=== PATIENT | female | born 1995 | race Asian ===

== ENCOUNTER 2023-02-09 03:29 | Inpatient (IN) | payer OTHER ==
[~2023-02-09] VITALS: Ht 167.6 cm; Wt 99.3 kg
[2023-02-09] MEDS ORDERED: ACETAMINOPHEN 650 MG/SUPP.RECT RC ONE ×2 (03:50→04:00)
[2023-02-09] MEDS ORDERED: CEFEPIME 2 GM in IV D5W 50 ML IV ONE (04:00)
[2023-02-09] MEDS ORDERED: VANCOMYCIN 1 GM in IV D5W 250 ML IV ONE (04:00)
[2023-02-09] MEDS ORDERED: IV NS 0.9% 1,000 ML BAG IV ONE (04:00)
[2023-02-09 05:13] LABS: APPEARANCE,URINE CLEAR (CLEAR); BILIRUBIN,URINE NEGATIVE (NEGATIVE); BLOOD, URINE 1+ Ery/uL (NEGATIVE); COLOR,URINE YELLOW (YELLOW); KETONES,URINE NEGATIVE (NEGATIVE); LEUKOCYTE ESTERASE ,URINE NEGATIVE (NEGATIVE); NITRITE, URINE NEGATIVE (NEGATIVE); PROTEIN,URINE NEGATIVE (NEGATIVE); UGLUCOSE NEGATIVE (NEGATIVE); UROBILINOGEN,URINE 0.2 EU/dL (0.2)
[2023-02-09] MEDS ORDERED: CEFEPIME 1 GM VIAL ONE (05:19)
[2023-02-09] MEDS ORDERED: VANCOMYCIN 1 GM /D5W 250 ML PB IV ONE (06:05)
[2023-02-09 07:01] LABS: CALCIUM, SERUM 9.1 mg/dL (8.5-10.1); CARBON DIOXIDE 29 mmol/L (21-32); CHLORIDE 100 mmol/L (98-107); CREATININE 0.7 mg/dL (0.6-1.3); GLUCOSE 155 mg/dL (74-106); POTASSIUM 3.7 mmol/L (3.5-5.1); SODIUM SERUM 133 mmol/L (136-145); UREA NITROGEN, BLOOD 13 mg/dL (7-18)
[2023-02-09 07:14] LABS: ALANINE AMINOTRANSFERASE 30 U/L (12-78); ALKALINE PHOSPHATASE 87 U/L (46-116); ASPARTATE AMINOTRANSFERASE 32 U/L (15-37); BILIRUBIN,DIRECT 0.2 mg/dL (0.0-0.2); BILIRUBIN,TOTAL 0.8 mg/dL (0.2-1.0); NT-PRO BNP 155 pg/mL (0-125)
[2023-02-09 08:27] LABS: BASOPHILS % (AUTO) 0.2 % (0.0-2.0); EOSINOPHILS # (AUTO) 0.3 K/uL (0.0-0.7); EOSINOPHILS % (AUTO) 4.8 % (0.0-6.0); HEMATOCRIT 30 % (33-45); HEMOGLOBIN 9.7 g/dL (11.5-14.8); LYMPHOCYTES # (AUTO) 1.3 K/uL (0.8-4.8); LYMPHOCYTES % (AUTO) 21.2 % (20.0-44.0); MEAN CORPUSCULAR HEMOGLOBIN 26 PG (26.0-33.0); MEAN CORPUSCULAR HGB CONC 32 g/dl (31.0-36.0); MEAN CORPUSCULAR VOLUME 81 fL (82-100); MONOCYTES # (AUTO) 0.4 K/uL (0.1-1.30); NEUTROPHILS # (AUTO) 4.1 K/uL (1.8-8.9); NEUTROPHILS % (AUTO) 66.8 % (43.0-81.0); PLATELET COUNT (AUTO) 270 K/uL (150-450); RED BLOOD CELL COUNT(AUTO) 3.75 MIL/uL (4.0-5.2); RED CELL DISTRIBUTION WIDTH 21.8 % (11.5-15.0); WHITE BLOOD COUNT (AUTO) 6.1 K/uL (4.3-11.0)
[2023-02-09 08:39] LABS: INR 1.04 (0.91-1.10); PARTIAL THROMBOPLASTIN TIME 30.2 SEC (24.3-34.3); PROTHROMBIN TIME 10.9 SECS (9.2-11.1)
[2023-02-09] MEDS ORDERED: DESM0.2T23 GT (09:21)
[2023-02-09] MEDS ORDERED: MENT71OI2 TP (09:21)
[2023-02-09] MEDS ORDERED: MAGN400O6 GT (09:21)
[2023-02-09] MEDS ORDERED: PETR113O TP (09:21)
[2023-02-09] MEDS ORDERED: HYDR-4316 GT (09:21)
[2023-02-09] MEDS ORDERED: METF-440 GT (09:21)
[2023-02-09] MEDS ORDERED: POVI3780 TP (09:21)
[2023-02-09] MEDS ORDERED: LACT250L14 GT (09:21)
[2023-02-09] MEDS ORDERED: CHLO473M5 MM (09:21)
[2023-02-09] MEDS ORDERED: INSU100V7 SQ (09:21)
[2023-02-09] MEDS ORDERED: LEVE100S GT (09:21)
[2023-02-09] MEDS ORDERED: ACET650S26 GT (09:21)
[2023-02-09] MEDS ORDERED: METO25TA20 GT (09:21)
[2023-02-09] MEDS ORDERED: ALBU8.5H8 IH ×2 (09:21)
[2023-02-09] MEDS ORDERED: NA P133E RC (09:21)
[2023-02-09] MEDS ORDERED: BISA10SU11 RC (09:21)
[2023-02-09] MEDS ORDERED: LEVO75TA7 TD (09:21)
[2023-02-09] MEDS ORDERED: BISACODYL SUPP (10 MG) 10 MG/SUPP.RECT SUPP.RECT RC PRN (11:30)
[2023-02-09] MEDS ORDERED: MAGNESIUM HYDROXIDE 30 ML UDC GT PRN (11:30)
[2023-02-09] MEDS ORDERED: NA PHOS,M-B/NA PHOS,DI-BA 1 EA ENEMA RC PRN (11:30)
[2023-02-09] MEDS ORDERED: ACETAMINOPHEN 650 MG/20.3 ML UDC GT PRN (11:30)
[2023-02-09] MEDS: ALBUTEROL FS 2.5 MG/3 ML VIAL.NEB NEB SCH ×2 (12:43→20:33)
[2023-02-09] MEDS: METFORMIN 500 MG TABLET GT SCH (17:00)
[2023-02-09] MEDS: JEVITY 1.5 CAL LIQUID 1,000 ML BOTTLE GT SCH ×2 (17:00→21:00)
[2023-02-09 17:01] VITALS: BP 116/68; TEMP 99.5; O2SAT 98
[2023-02-09] MEDS: LORAZEPAM INJ 2 MG/ML VIAL IV PRN (17:46)
[2023-02-09] MEDS: VANCOMYCIN 1 GM in IV D5W 250ml IV SCH (17:59)
[2023-02-09] MEDS: CHLORHEXIDINE GLUCONATE 15 ML UDC MM SCH (18:50)
[2023-02-09] MEDS: ZOSYN IVPB 3.375 G in IV D5W 50ml IV SCH (19:09)
[2023-02-09 20:00] VITALS: BP 109/71; TEMP 101.7; O2SAT 94
[2023-02-09] MEDS: LEVETIRACETAM SOL (5 ML) 100 MG/ML UDC GT SCH (21:00)
[2023-02-09] MEDS: DESMOPRESSIN ACETATE 0.1 MG TABLET GT SCH (21:00)
[2023-02-09] MEDS: HYDROCORTISONE 5 MG TABLET GT SCH (21:00)
[2023-02-09] MEDS: METOPROLOL TARTRATE 25 MG TABLET GT SCH (21:00)
[2023-02-09] MEDS ORDERED: INSULIN GLARGINE, 100 UNIT/ML CARTRIDGE SQ SCH (22:00)
[2023-02-09] MEDS: ACETAMINOPHEN 650 MG/SUPP.RECT RC PRN (22:11)
[2023-02-09] MEDS ORDERED: LEVETIRACETAM (500MG) 500 MG/5 ML VIAL IV ONE (23:21)
[2023-02-09] MEDS: LEVETIRACETAM (500MG) 1,000 MG in IV NS 0.9% 90 ML IV SCH (23:31)
[2023-02-10] VITALS (11 sets, daily range): BP systolic 79–131; BP diastolic 43–76; TEMP 101–104.6; O2SAT 97–100
[2023-02-10] MEDS: ZOSYN IVPB 3.375 G in IV D5W 50ml IV SCH ×5 (00:05→23:40)
[2023-02-10] MEDS: JEVITY 1.5 CAL LIQUID 1,000 ML BOTTLE GT SCH ×6 (01:00→21:00)
[2023-02-10] MEDS: VANCOMYCIN 1 GM in IV D5W 250ml IV SCH (01:24)
[2023-02-10] MEDS: ALBUTEROL FS 2.5 MG/3 ML VIAL.NEB NEB SCH ×5 (02:11→20:07)
[2023-02-10 08:06] LABS: CALCIUM, SERUM 10.3 mg/dL (8.5-10.1); CREATININE 1.5 mg/dL (0.6-1.3); POTASSIUM 4.2 mmol/L (3.5-5.1)
[2023-02-10] MEDS: METFORMIN 500 MG TABLET GT SCH ×2 (08:42→17:00)
[2023-02-10] MEDS: CHLORHEXIDINE GLUCONATE 15 ML UDC MM SCH ×2 (08:42→17:09)
[2023-02-10] MEDS: METOPROLOL TARTRATE 25 MG TABLET GT SCH ×2 (08:43→21:00)
[2023-02-10] MEDS: LEVOTHYROXINE SODIUM 75 MCG TABLET GT SCH (08:43)
[2023-02-10] MEDS: LEVETIRACETAM SOL (5 ML) 100 MG/ML UDC GT SCH (08:43)
[2023-02-10] MEDS: ACETAMINOPHEN 650 MG/SUPP.RECT RC PRN ×3 (08:44→18:55)
[2023-02-10] MEDS: DESMOPRESSIN ACETATE 0.1 MG TABLET GT SCH (08:46)
[2023-02-10 09:33] LABS: ABG BASE EXCESS 1.2 mmol/L; ABG OXYGEN SATURATION 96.5 % (92.0-98.5); ABG PCO2 35.9 mmHg (35.0-45.0); ABG PH 7.456 (7.350-7.450); ABG PO2 90.5 mmHg (75.0-100.0); ABG TOTAL HEMOGLOBIN 13.5 G/dL (12.0-16.0); AaDO2 153.4 mmHg; COHb 0.7 % (0.5-1.5); MetHb 0.2 % (0.0-1.5); O2Hb 95.6 % (94.0-97.0); SITE, ABG Right Radial; VENT MODE, BG AC 14 350 40% +5
[2023-02-10] MEDS: HYDROCORTISONE 5 MG TABLET GT SCH ×2 (09:59→21:00)
[2023-02-10] MEDS ORDERED: Z GUARD REMEDY 4 OZ OINT TP PRN (11:30)
[2023-02-10 11:45] LABS: ALBUMIN 3.4 g/dL (3.4-5.0); BILIRUBIN,TOTAL 0.9 mg/dL (0.2-1.0); CALCIUM, SERUM 10.3 mg/dL (8.5-10.1); POTASSIUM 4.7 mmol/L (3.5-5.1)
[2023-02-10] MEDS ORDERED: HEPARIN SODIUM, PORCINE 5000 UNITS/1 ML VIAL SQ SCH (12:00)
[2023-02-10 12:02] LABS: CREATININE 1.8 mg/dL (0.6-1.3)
[2023-02-10] MEDS: LEVETIRACETAM (500MG) 1,000 MG in IV NS 0.9% 90 ML IV SCH ×2 (12:14→22:29)
[2023-02-10] MEDS: Z GUARD REMEDY 4 OZ OINT TP SCH (12:26)
[2023-02-10] MEDS: IV D5W 1,000 ML IV PRN ×3 (12:28→13:38)
[2023-02-10] MEDS ORDERED: IV D5W 1,000 ML IV ONE ×2 (13:00)
[2023-02-10] MEDS: DESMOPRESSIN 4 MCG/ML AMPUL SQ SCH ×2 (13:53→22:39)
[2023-02-10 14:20] LABS: CREATININE, URINE 41.9 MG/DL (30.0-125.0); URINE SODIUM, RANDOM < 5 mmol/l (40-220); URINE TOTAL PROTEIN 16.1 mg/dL (0-11.9)
[2023-02-10 15:39] LABS: APPEARANCE,URINE CLEAR (CLEAR); BILIRUBIN,URINE NEGATIVE (NEGATIVE); BLOOD, URINE TRACE-INTA Ery/uL (NEGATIVE); COLOR,URINE YELLOW (YELLOW); KETONES,URINE NEGATIVE (NEGATIVE); LEUKOCYTE ESTERASE ,URINE 1+ (NEGATIVE); NITRITE, URINE NEGATIVE (NEGATIVE); PH,URINE 6.5 (5.0-8.0); PROTEIN,URINE NEGATIVE (NEGATIVE); UGLUCOSE NEGATIVE (NEGATIVE); UROBILINOGEN,URINE 0.2 EU/dL (0.2)
[2023-02-10 15:45] LABS: PREGNANCY TEST URINE QUAL NEGATIVE (NEGATIVE)
[2023-02-10 15:54] LABS: ADD URINE CULTURE YES; BACTERIA,URINE 1+ /HPF (None Seen)
[2023-02-10 16:40] LABS: CALCIUM, SERUM 9.4 mg/dL (8.5-10.1); CREATININE 2.2 mg/dL (0.6-1.3); POTASSIUM 3.7 mmol/L (3.5-5.1)
[2023-02-10 16:41] LABS: EOSINOPHIL,URINE None Seen
[2023-02-10] MEDS: CLOTRIMAZOLE 1% 15 GM TUBE TP SCH (17:11)
[2023-02-10] MEDS: IV 1/2NS 1000 ML 1,000 ML IV PRN (17:56)
[2023-02-10 19:47] LABS: CALCIUM, SERUM 9.3 mg/dL (8.5-10.1); CREATININE 2.7 mg/dL (0.6-1.3); POTASSIUM 4.1 mmol/L (3.5-5.1)
[2023-02-10] MEDS: PHENYLEPHRINE 50 MG in IV NS 0.9% 245 ML IV PRN (22:20)
[2023-02-10] MEDS: INSULIN GLARGINE, 100 UNIT/ML CARTRIDGE SQ SCH (23:07)
[2023-02-11] VITALS (96 sets, daily range): BP systolic 74–145; BP diastolic 34–105; TEMP 99.6–103.8; O2SAT 98–100
[2023-02-11 00:50] LABS: HIV-1 p24 ANTIGEN NON REACTIVE (NONREACTIVE); HIV-1/2 ANTIBODY NON REACTIVE (NONREACTIVE)
[2023-02-11] MEDS: JEVITY 1.5 CAL LIQUID 1,000 ML BOTTLE GT SCH ×6 (01:00→21:00)
[2023-02-11] MEDS: ALBUTEROL FS 2.5 MG/3 ML VIAL.NEB NEB SCH ×3 (01:48→14:04)
[2023-02-11] MEDS: ACETAMINOPHEN 650 MG/SUPP.RECT RC PRN ×3 (02:27→19:21)
[2023-02-11 03:45] LABS: BASOPHILS # (AUTO) 0.1 K/uL (0.0-0.2); BASOPHILS % (AUTO) 0.4 % (0.0-2.0); EOSINOPHILS # (AUTO) 0.6 K/uL (0.0-0.7); HEMATOCRIT 33 % (33-45); HEMOGLOBIN 10.2 g/dL (11.5-14.8); LYMPHOCYTES # (AUTO) 4.7 K/uL (0.8-4.8); LYMPHOCYTES % (AUTO) 33.4 % (20.0-44.0); MEAN CORPUSCULAR HEMOGLOBIN 25 PG (26.0-33.0); MEAN CORPUSCULAR HGB CONC 31 g/dl (31.0-36.0); MEAN CORPUSCULAR VOLUME 83 fL (82-100); MONOCYTES # (AUTO) 1.1 K/uL (0.1-1.30); MONOCYTES % (AUTO) 7.9 % (2.0-12.0); NEUTROPHILS # (AUTO) 7.6 K/uL (1.8-8.9); NEUTROPHILS % (AUTO) 54.3 % (43.0-81.0); PLATELET COUNT (AUTO) 447 K/uL (150-450); RED BLOOD CELL COUNT(AUTO) 4.01 MIL/uL (4.0-5.2); RED CELL DISTRIBUTION WIDTH 22.7 % (11.5-15.0); WHITE BLOOD COUNT (AUTO) 13.9 K/uL (4.3-11.0)
[2023-02-11 04:01] LABS: CALCIUM, SERUM 9.1 mg/dL (8.5-10.1); CREATININE 2.8 mg/dL (0.6-1.3); MAGNESIUM 1.8 mg/dL (1.8-2.4); PHOSPHORUS 4.8 mg/dL (2.5-4.9); POTASSIUM 3.4 mmol/L (3.5-5.1)
[2023-02-11] MEDS: PHENYLEPHRINE 50 MG in IV NS 0.9% 245 ML IV PRN ×3 (04:37→14:20)
[2023-02-11] MEDS: IV 1/2NS 1000 ML 1,000 ML IV PRN ×2 (05:26→22:31)
[2023-02-11] MEDS: ZOSYN IVPB 3.375 G in IV D5W 50ml IV SCH ×4 (05:44→23:42)
[2023-02-11] MEDS: LEVOTHYROXINE SODIUM 75 MCG TABLET GT SCH (07:30)
[2023-02-11] MEDS: METFORMIN 500 MG TABLET GT SCH (08:08)
[2023-02-11] MEDS: CLOTRIMAZOLE 1% 15 GM TUBE TP SCH ×2 (08:09→16:16)
[2023-02-11] MEDS: Z GUARD REMEDY 4 OZ OINT TP SCH (08:09)
[2023-02-11] MEDS ORDERED: IV D5W 500 ML IV ONE (09:00)
[2023-02-11] MEDS: METOPROLOL TARTRATE 25 MG TABLET GT SCH ×2 (09:00→21:00)
[2023-02-11] MEDS: CHLORHEXIDINE GLUCONATE 15 ML UDC MM SCH ×2 (09:08→16:15)
[2023-02-11] MEDS: HYDROCORTISONE SOD SUCCINATE 100 MG/2 ML VIAL IV SCH ×3 (09:09→21:14)
[2023-02-11] MEDS: DESMOPRESSIN 4 MCG/ML AMPUL IV SCH ×2 (09:11→21:50)
[2023-02-11] MEDS: MICAFUNGIN SODIUM 100 MG in IV NS 0.9% 100 ML IV SCH (09:45)
[2023-02-11] MEDS: LEVETIRACETAM (500MG) 1,000 MG in IV NS 0.9% 90 ML IV SCH ×2 (10:10→21:37)
[2023-02-11] MEDS: VANCOMYCIN 1 GM in IV D5W 250ml IV SCH (13:04)
[2023-02-11] MEDS: LORAZEPAM INJ 2 MG/ML VIAL IV PRN (14:41)
[2023-02-11 15:23] LABS: CALCIUM, SERUM 8.3 mg/dL (8.5-10.1); CREATININE 1.7 mg/dL (0.6-1.3); POTASSIUM 3.4 mmol/L (3.5-5.1)
[2023-02-11] MEDS: POTASSIUM CL. PREMIX PERIPHER. 50 ML IV SCH ×2 (16:11→17:12)
[2023-02-11] MEDS ORDERED: LORAZEPAM INJ 2 MG/ML VIAL IV ONE (16:30)
[2023-02-11] MEDS: MORPHINE SULFATE INJ 2 MG/ML DISP.SYRIN IV PRN (17:52)
[2023-02-11] MEDS ORDERED: DESMOPRESSIN 4 MCG/ML AMPUL ONE (21:46)
[2023-02-11] MEDS: INSULIN GLARGINE, 100 UNIT/ML CARTRIDGE SQ SCH (21:57)
[2023-02-12] VITALS (35 sets, daily range): BP systolic 89–132; BP diastolic 52–74; TEMP 94.2–98.2; O2SAT 99–100
[2023-02-12] MEDS: JEVITY 1.5 CAL LIQUID 1,000 ML BOTTLE GT SCH ×6 (01:00→20:50)
[2023-02-12] MEDS: HYDROCORTISONE SOD SUCCINATE 100 MG/2 ML VIAL IV SCH ×3 (05:23→20:58)
[2023-02-12 05:34] LABS: BASOPHILS % (AUTO) 0.1 % (0.0-2.0); EOSINOPHILS % (AUTO) 0.1 % (0.0-6.0); HEMATOCRIT 25 % (33-45); HEMOGLOBIN 7.9 g/dL (11.5-14.8); LYMPHOCYTES # (AUTO) 0.9 K/uL (0.8-4.8); LYMPHOCYTES % (AUTO) 15.5 % (20.0-44.0); MEAN CORPUSCULAR HEMOGLOBIN 26 PG (26.0-33.0); MEAN CORPUSCULAR HGB CONC 32 g/dl (31.0-36.0); MEAN CORPUSCULAR VOLUME 82 fL (82-100); MONOCYTES # (AUTO) 0.1 K/uL (0.1-1.30); MONOCYTES % (AUTO) 2.4 % (2.0-12.0); NEUTROPHILS # (AUTO) 4.6 K/uL (1.8-8.9); NEUTROPHILS % (AUTO) 81.9 % (43.0-81.0); PLATELET COUNT (AUTO) 278 K/uL (150-450); RED BLOOD CELL COUNT(AUTO) 3.06 MIL/uL (4.0-5.2); RED CELL DISTRIBUTION WIDTH 21.4 % (11.5-15.0); WHITE BLOOD COUNT (AUTO) 5.6 K/uL (4.3-11.0)
[2023-02-12 05:41] LABS: CALCIUM, SERUM 8.3 mg/dL (8.5-10.1); CREATININE 1.1 mg/dL (0.6-1.3); MAGNESIUM 1.6 mg/dL (1.8-2.4); PHOSPHORUS 2.3 mg/dL (2.5-4.9); POTASSIUM 3.5 mmol/L (3.5-5.1)
[2023-02-12] MEDS: ZOSYN IVPB 3.375 G in IV D5W 50ml IV SCH ×4 (06:05→23:52)
[2023-02-12] MEDS: LEVOTHYROXINE INJ 100 MCG VIAL IV SCH (07:37)
[2023-02-12] MEDS: DESMOPRESSIN 4 MCG/ML AMPUL IV SCH ×2 (08:02→20:58)
[2023-02-12] MEDS: METOPROLOL TARTRATE 25 MG TABLET GT SCH ×2 (08:02→20:50)
[2023-02-12] MEDS: CHLORHEXIDINE GLUCONATE 15 ML UDC MM SCH ×2 (08:03→17:00)
[2023-02-12] MEDS: Z GUARD REMEDY 4 OZ OINT TP SCH (08:03)
[2023-02-12] MEDS: MICAFUNGIN SODIUM 100 MG in IV NS 0.9% 100 ML IV SCH (08:03)
[2023-02-12] MEDS: CLOTRIMAZOLE 1% 15 GM TUBE TP SCH ×2 (08:04→16:51)
[2023-02-12] MEDS ORDERED: POTASSIUM PHOSPHATE MM 15 MMOL in IV NS 0.9% 250 ML IV SCH (08:30)
[2023-02-12] MEDS: IV NS 0.9% 250 ML IV PRN (09:43)
[2023-02-12] MEDS: LEVETIRACETAM (500MG) 1,000 MG in IV NS 0.9% 90 ML IV SCH ×2 (10:52→21:18)
[2023-02-12] MEDS: VANCOMYCIN 1 GM in IV D5W 250ml IV SCH (12:46)
[2023-02-12] MEDS ORDERED: Magnesium 1GM/D5W 100ML PREMIX PIGGYBACK IV ONE (13:00)
[2023-02-12] MEDS: IV 1/2NS 1000 ML 1,000 ML IV PRN (13:29)
[2023-02-12] MEDS ORDERED: Sodium Phosphate 15 MMOL in IV NS 0.9% 245 ML IV SCH (16:00)
[2023-02-12] MEDS: INSULIN GLARGINE, 100 UNIT/ML CARTRIDGE SQ SCH (22:03)
[2023-02-13] VITALS (19 sets, daily range): BP systolic 95–127; BP diastolic 62–99; TEMP 97.5–98.6; O2SAT 99–100
[2023-02-13] MEDS: JEVITY 1.5 CAL LIQUID 1,000 ML BOTTLE GT SCH ×6 (01:00→20:45)
[2023-02-13] MEDS: VANCOMYCIN HCL 0.75 GM in IV D5W 250 ML IV SCH ×2 (01:11→14:22)
[2023-02-13] MEDS: IV 1/2NS 1000 ML 1,000 ML IV PRN (04:47)
[2023-02-13 04:48] LABS: BASOPHILS % (AUTO) 0.1 % (0.0-2.0); HEMATOCRIT 24 % (33-45); HEMOGLOBIN 7.6 g/dL (11.5-14.8); LYMPHOCYTES # (AUTO) 0.7 K/uL (0.8-4.8); LYMPHOCYTES % (AUTO) 14.1 % (20.0-44.0); MEAN CORPUSCULAR HEMOGLOBIN 25 PG (26.0-33.0); MEAN CORPUSCULAR HGB CONC 31 g/dl (31.0-36.0); MEAN CORPUSCULAR VOLUME 82 fL (82-100); MONOCYTES # (AUTO) 0.1 K/uL (0.1-1.30); MONOCYTES % (AUTO) 2.1 % (2.0-12.0); NEUTROPHILS # (AUTO) 4.5 K/uL (1.8-8.9); NEUTROPHILS % (AUTO) 83.7 % (43.0-81.0); PLATELET COUNT (AUTO) 245 K/uL (150-450); RED BLOOD CELL COUNT(AUTO) 2.99 MIL/uL (4.0-5.2); RED CELL DISTRIBUTION WIDTH 21.5 % (11.5-15.0); WHITE BLOOD COUNT (AUTO) 5.3 K/uL (4.3-11.0)
[2023-02-13] MEDS: HYDROCORTISONE SOD SUCCINATE 100 MG/2 ML VIAL IV SCH ×3 (05:09→20:40)
[2023-02-13 05:29] LABS: CALCIUM, SERUM 8.2 mg/dL (8.5-10.1); CREATININE 0.8 mg/dL (0.6-1.3); MAGNESIUM 1.9 mg/dL (1.8-2.4); PHOSPHORUS 2.7 mg/dL (2.5-4.9); POTASSIUM 3.2 mmol/L (3.5-5.1)
[2023-02-13] MEDS: ZOSYN IVPB 3.375 G in IV D5W 50ml IV SCH ×3 (05:45→17:54)
[2023-02-13] MEDS ORDERED: POTASSIUM CHLORIDE 20 MEQ POWDER PACKET GT SCH (07:30)
[2023-02-13] MEDS: METOPROLOL TARTRATE 25 MG TABLET GT SCH ×2 (08:18→20:46)
[2023-02-13] MEDS ORDERED: TPN/PPN PER PHARMACY IV PRN (08:30)
[2023-02-13] MEDS: POTASSIUM CL. PREMIX PERIPHER. 50 ML IV SCH ×4 (09:12→12:49)
[2023-02-13] MEDS: LEVOTHYROXINE INJ 100 MCG VIAL IV SCH (09:12)
[2023-02-13] MEDS: DESMOPRESSIN 4 MCG/ML AMPUL IV SCH ×2 (09:12→20:41)
[2023-02-13] MEDS: CHLORHEXIDINE GLUCONATE 15 ML UDC MM SCH ×2 (09:12→16:34)
[2023-02-13] MEDS: Z GUARD REMEDY 4 OZ OINT TP SCH (09:14)
[2023-02-13] MEDS: CLOTRIMAZOLE 1% 15 GM TUBE TP SCH ×2 (09:14→16:34)
[2023-02-13] MEDS: LEVETIRACETAM (500MG) 1,000 MG in IV NS 0.9% 90 ML IV SCH ×2 (10:49→21:05)
[2023-02-13] MEDS ORDERED: DEXTROSE 50%-WATER 50 ML DISP.SYRIN IV PRN (12:00)
[2023-02-13] MEDS: BLOOD SUGAR DIAGNOSTIC 1 EACH STRIP IN SCH ×2 (12:49→19:12)
[2023-02-13] MEDS ORDERED: TPN BAG #1 IV SCH ×3 (14:00)
[2023-02-13] MEDS: INSULIN REGULAR, HUMAN 100 UNIT/ML 3 ML VIAL SQ PRN ×2 (14:25→19:13)
[2023-02-13] MEDS ORDERED: FUROSEMIDE 20 MG/2 ML VIAL IV STA (15:10)
[2023-02-13 16:20] LABS: CALCIUM, SERUM 8.5 mg/dL (8.5-10.1); CREATININE 0.8 mg/dL (0.6-1.3); POTASSIUM 3.9 mmol/L (3.5-5.1)
[2023-02-13] MEDS: INSULIN GLARGINE, 100 UNIT/ML CARTRIDGE SQ SCH (21:06)
[2023-02-14] VITALS: BP 112/62; TEMP 97.7; O2SAT 100
[2023-02-14] MEDS: INSULIN REGULAR, HUMAN 100 UNIT/ML 3 ML VIAL SQ PRN ×4 (00:02→17:02)
[2023-02-14] MEDS: ZOSYN IVPB 3.375 G in IV D5W 50ml IV SCH ×4 (00:04→17:07)
[2023-02-14] MEDS: BLOOD SUGAR DIAGNOSTIC 1 EACH STRIP IN SCH ×4 (00:15→17:00)
[2023-02-14] MEDS: JEVITY 1.5 CAL LIQUID 1,000 ML BOTTLE GT SCH ×6 (01:00→21:00)
[2023-02-14] MEDS: VANCOMYCIN HCL 0.75 GM in IV D5W 250 ML IV SCH ×2 (01:34→13:00)
[2023-02-14 04:00] VITALS: BP 106/70; TEMP 97; O2SAT 100
[2023-02-14] MEDS: HYDROCORTISONE SOD SUCCINATE 100 MG/2 ML VIAL IV SCH ×4 (05:19→16:15)
[2023-02-14 05:50] LABS: BASOPHILS % (AUTO) 0.3 % (0.0-2.0); HEMATOCRIT 27 % (33-45); HEMOGLOBIN 8.2 g/dL (11.5-14.8); MEAN CORPUSCULAR HEMOGLOBIN 25 PG (26.0-33.0); MEAN CORPUSCULAR HGB CONC 31 g/dl (31.0-36.0); MEAN CORPUSCULAR VOLUME 83 fL (82-100); MONOCYTES # (AUTO) 0.2 K/uL (0.1-1.30); MONOCYTES % (AUTO) 3.6 % (2.0-12.0); NEUTROPHILS # (AUTO) 3.3 K/uL (1.8-8.9); NEUTROPHILS % (AUTO) 74.1 % (43.0-81.0); PLATELET COUNT (AUTO) 250 K/uL (150-450); RED BLOOD CELL COUNT(AUTO) 3.25 MIL/uL (4.0-5.2); RED CELL DISTRIBUTION WIDTH 21.2 % (11.5-15.0); WHITE BLOOD COUNT (AUTO) 4.5 K/uL (4.3-11.0)
[2023-02-14 06:20] LABS: CALCIUM, SERUM 8.1 mg/dL (8.5-10.1); CREATININE 0.9 mg/dL (0.6-1.3); MAGNESIUM 1.7 mg/dL (1.8-2.4); PHOSPHORUS 2.6 mg/dL (2.5-4.9)
[2023-02-14 08:00] VITALS: BP 116/78; TEMP 98.2; O2SAT 99
[2023-02-14] MEDS: POTASSIUM CL. PREMIX PERIPHER. 50 ML IV SCH ×4 (08:03→11:20)
[2023-02-14] MEDS: CLOTRIMAZOLE 1% 15 GM TUBE TP SCH ×2 (08:29→16:04)
[2023-02-14] MEDS: Z GUARD REMEDY 4 OZ OINT TP SCH (08:29)
[2023-02-14] MEDS ORDERED: POTASSIUM PHOSPHATE MM 7.5 MMOL in IV NS 0.9% 100 ML IV SCH (08:30)
[2023-02-14] MEDS: CHLORHEXIDINE GLUCONATE 15 ML UDC MM SCH ×2 (08:56→16:04)
[2023-02-14] MEDS: METOPROLOL TARTRATE 25 MG TABLET GT SCH ×2 (08:57→21:37)
[2023-02-14] MEDS: DESMOPRESSIN 4 MCG/ML AMPUL IV SCH ×2 (09:00→21:34)
[2023-02-14] MEDS: LEVOTHYROXINE INJ 100 MCG VIAL IV SCH (10:19)
[2023-02-14] MEDS: LEVETIRACETAM (500MG) 1,000 MG in IV NS 0.9% 90 ML IV SCH ×2 (11:56→21:37)
[2023-02-14 12:00] VITALS: BP 121/83; TEMP 98.5; O2SAT 99
[2023-02-14] MEDS: MORPHINE SULFATE INJ 2 MG/ML DISP.SYRIN IV PRN ×2 (12:23→17:20)
[2023-02-14] MEDS: POTASSIUM PHOSPHATE MM 7.5 MMOL in IV NS 0.9% 100 ML IV SCH ×2 (13:30→17:06)
[2023-02-14] MEDS ORDERED: TPN BAG #2 IV SCH ×3 (14:00)
[2023-02-14] MEDS: Magnesium 1GM/D5W 100ML PREMIX 100 ML IV SCH ×2 (14:37→15:46)
[2023-02-14 16:00] VITALS: BP 109/74; TEMP 98.7; O2SAT 99
[2023-02-14] MEDS: FAT EMULSION 20% 500 ML in PREMIX 1 EA IV SCH (16:15)
[2023-02-14 22:00] VITALS: BP 128/78; TEMP 97.5; O2SAT 100
[2023-02-14] MEDS: INSULIN GLARGINE, 100 UNIT/ML CARTRIDGE SQ SCH (22:11)
[2023-02-14] MEDS: LORAZEPAM INJ 2 MG/ML VIAL IV PRN (23:03)
[2023-02-15] VITALS: BP 127/91; TEMP 97.7; O2SAT 99
[2023-02-15] MEDS: ZOSYN IVPB 3.375 G in IV D5W 50ml IV SCH ×4 (00:04→17:04)
[2023-02-15] MEDS: INSULIN REGULAR, HUMAN 100 UNIT/ML 3 ML VIAL SQ PRN ×4 (00:18→18:52)
[2023-02-15] MEDS: BLOOD SUGAR DIAGNOSTIC 1 EACH STRIP IN SCH ×4 (00:19→17:04)
[2023-02-15] MEDS: JEVITY 1.5 CAL LIQUID 1,000 ML BOTTLE GT SCH ×6 (01:00→20:42)
[2023-02-15 04:00] VITALS: BP 108/74; TEMP 97; O2SAT 99
[2023-02-15] MEDS: LORAZEPAM INJ 2 MG/ML VIAL IV PRN (05:30)
[2023-02-15 06:03] LABS: BASOPHILS % (AUTO) 0.1 % (0.0-2.0); EOSINOPHILS % (AUTO) 0.1 % (0.0-6.0); HEMATOCRIT 30 % (33-45); HEMOGLOBIN 9.8 g/dL (11.5-14.8); LYMPHOCYTES # (AUTO) 1.7 K/uL (0.8-4.8); LYMPHOCYTES % (AUTO) 17.2 % (20.0-44.0); MEAN CORPUSCULAR HEMOGLOBIN 26 PG (26.0-33.0); MEAN CORPUSCULAR HGB CONC 33 g/dl (31.0-36.0); MEAN CORPUSCULAR VOLUME 81 fL (82-100); MONOCYTES # (AUTO) 0.3 K/uL (0.1-1.30); MONOCYTES % (AUTO) 3.4 % (2.0-12.0); NEUTROPHILS # (AUTO) 7.9 K/uL (1.8-8.9); NEUTROPHILS % (AUTO) 79.2 % (43.0-81.0); PLATELET COUNT (AUTO) 288 K/uL (150-450); RED BLOOD CELL COUNT(AUTO) 3.75 MIL/uL (4.0-5.2); RED CELL DISTRIBUTION WIDTH 21.4 % (11.5-15.0); WHITE BLOOD COUNT (AUTO) 9.9 K/uL (4.3-11.0)
[2023-02-15 06:25] LABS: CALCIUM, SERUM 8.2 mg/dL (8.5-10.1); CREATININE 0.7 mg/dL (0.6-1.3)
[2023-02-15 06:27] LABS: POTASSIUM 2.7 mmol/L (3.5-5.1)
[2023-02-15] MEDS ORDERED: NS 0.9% IV ONE (07:30)
[2023-02-15] MEDS ORDERED: POTASSIUM PHOSPHATE MM IV ONE (07:30)
[2023-02-15 08:00] VITALS: BP 135/90; TEMP 96.3; O2SAT 96
[2023-02-15] MEDS ORDERED: TPN BAG #3 IV SCH ×6 (08:00)
[2023-02-15] MEDS: POTASSIUM PHOSPHATE MM 15 MMOL in IV NS 0.9% 250 ML IV SCH ×2 (08:17→12:25)
[2023-02-15] MEDS: POTASSIUM CL. PREMIX PERIPHER. 50 ML IV SCH ×4 (08:17→11:19)
[2023-02-15] MEDS: LEVOTHYROXINE INJ 100 MCG VIAL IV SCH (08:18)
[2023-02-15] MEDS: METOPROLOL TARTRATE 25 MG TABLET GT SCH ×2 (09:00→21:56)
[2023-02-15] MEDS: HYDROCORTISONE SOD SUCCINATE 100 MG/2 ML VIAL IV SCH ×2 (09:28→17:04)
[2023-02-15] MEDS: CHLORHEXIDINE GLUCONATE 15 ML UDC MM SCH ×2 (09:28→17:04)
[2023-02-15] MEDS: Z GUARD REMEDY 4 OZ OINT TP SCH (09:30)
[2023-02-15] MEDS: CLOTRIMAZOLE 1% 15 GM TUBE TP SCH ×2 (09:30→17:05)
[2023-02-15] MEDS: DESMOPRESSIN 4 MCG/ML AMPUL IV SCH ×2 (10:17→21:57)
[2023-02-15] MEDS: LEVETIRACETAM (500MG) 1,000 MG in IV NS 0.9% 90 ML IV SCH ×2 (11:19→21:57)
[2023-02-15 12:00] VITALS: BP 127/100; TEMP 98.1; O2SAT 99
[2023-02-15 16:00] VITALS: BP 135/91; TEMP 97.5; O2SAT 98
[2023-02-15] MEDS: ALBUTEROL FS 2.5 MG/3 ML VIAL.NEB NEB PRN (17:25)
[2023-02-15 20:00] VITALS: BP 136/96; TEMP 97.5; O2SAT 100
[2023-02-15] MEDS: INSULIN GLARGINE, 100 UNIT/ML CARTRIDGE SQ SCH (22:38)
[2023-02-16] VITALS: BP 128/98; TEMP 98.2; O2SAT 97
[2023-02-16] MEDS: JEVITY 1.5 CAL LIQUID 1,000 ML BOTTLE GT SCH ×6 (00:16→20:49)
[2023-02-16] MEDS: ZOSYN IVPB 3.375 G in IV D5W 50ml IV SCH ×5 (00:18→23:11)
[2023-02-16] MEDS: BLOOD SUGAR DIAGNOSTIC 1 EACH STRIP IN SCH ×5 (00:21→23:11)
[2023-02-16] MEDS: INSULIN REGULAR, HUMAN 100 UNIT/ML 3 ML VIAL SQ PRN ×4 (00:22→23:23)
[2023-02-16 04:00] VITALS: BP 134/93; TEMP 97.8; O2SAT 100
[2023-02-16 06:26] LABS: EOSINOPHILS % (AUTO) 0.2 % (0.0-6.0); HEMATOCRIT 25 % (33-45); HEMOGLOBIN 7.9 g/dL (11.5-14.8); LYMPHOCYTES # (AUTO) 1.2 K/uL (0.8-4.8); LYMPHOCYTES % (AUTO) 15.4 % (20.0-44.0); MEAN CORPUSCULAR HEMOGLOBIN 26 PG (26.0-33.0); MEAN CORPUSCULAR HGB CONC 32 g/dl (31.0-36.0); MEAN CORPUSCULAR VOLUME 83 fL (82-100); MONOCYTES # (AUTO) 0.3 K/uL (0.1-1.30); MONOCYTES % (AUTO) 3.9 % (2.0-12.0); NEUTROPHILS # (AUTO) 6.1 K/uL (1.8-8.9); NEUTROPHILS % (AUTO) 80.5 % (43.0-81.0); PLATELET COUNT (AUTO) 214 K/uL (150-450); RED BLOOD CELL COUNT(AUTO) 3.02 MIL/uL (4.0-5.2); RED CELL DISTRIBUTION WIDTH 21.3 % (11.5-15.0); WHITE BLOOD COUNT (AUTO) 7.6 K/uL (4.3-11.0)
[2023-02-16 07:11] LABS: MAGNESIUM 1.5 mg/dL (1.8-2.4); PHOSPHORUS 2.5 mg/dL (2.5-4.9)
[2023-02-16 08:00] VITALS: BP 128/97; TEMP 98.6; TEMP 98.8; O2SAT 96
[2023-02-16] MEDS ORDERED: TPN BAG #4 IV SCH ×3 (08:00)
[2023-02-16] MEDS: LEVOTHYROXINE INJ 100 MCG VIAL IV SCH (08:38)
[2023-02-16] MEDS: CHLORHEXIDINE GLUCONATE 15 ML UDC MM SCH ×2 (08:50→16:07)
[2023-02-16] MEDS: HYDROCORTISONE SOD SUCCINATE 100 MG/2 ML VIAL IV SCH ×2 (08:51→16:07)
[2023-02-16] MEDS: Z GUARD REMEDY 4 OZ OINT TP SCH (08:52)
[2023-02-16] MEDS: CLOTRIMAZOLE 1% 15 GM TUBE TP SCH ×2 (08:52→16:10)
[2023-02-16] MEDS: METOPROLOL TARTRATE 25 MG TABLET GT SCH ×2 (09:56→20:49)
[2023-02-16] MEDS: LEVETIRACETAM (500MG) 1,000 MG in IV NS 0.9% 90 ML IV SCH ×2 (10:34→21:15)
[2023-02-16] MEDS: DESMOPRESSIN 4 MCG/ML AMPUL IV SCH ×2 (10:35→21:14)
[2023-02-16] MEDS ORDERED: INSULIN REGULAR, HUMAN 100 UNIT/ML 3 ML VIAL SQ ONE (11:00)
[2023-02-16] MEDS ORDERED: POTASSIUM CL. PREMIX PERIPHER. 50 ML IV SCH (11:00)
[2023-02-16] MEDS: Magnesium 1GM/D5W 100ML PREMIX 100 ML IV SCH ×2 (11:30→11:41)
[2023-02-16 12:00] VITALS: BP 131/97; TEMP 98.9; O2SAT 100
[2023-02-16 12:03] LABS: THYROID STIMULATING HORMONE < 0.007 uIU/mL (0.358-3.74)
[2023-02-16 12:58] LABS: MAGNESIUM 1.9 mg/dL (1.8-2.4); POTASSIUM 3.7 mmol/L (3.5-5.1)
[2023-02-16 12:59] LABS: CALCIUM, SERUM 8.2 mg/dL (8.5-10.1); CREATININE 0.6 mg/dL (0.6-1.3); PHOSPHORUS 2.9 mg/dL (2.5-4.9)
[2023-02-16 13:15] LABS: POTASSIUM 2.7 mmol/L (3.5-5.1)
[2023-02-16 13:19] LABS: CALCIUM, SERUM 7.1 mg/dL (8.5-10.1); CREATININE 0.9 mg/dL (0.6-1.3)
[2023-02-16 16:00] VITALS: BP 129/97; TEMP 98.4; TEMP 98.6; O2SAT 100
[2023-02-16] MEDS: FAT EMULSION 20% 500 ML in PREMIX 1 EA IV SCH (16:07)
[2023-02-16 20:00] VITALS: BP 128/90; TEMP 97.5; O2SAT 100
[2023-02-16] MEDS ORDERED: POTASSIUM PHOSPHATE MM 7.5 MMOL in IV NS 0.9% 100 ML IV SCH (20:00)
[2023-02-16] MEDS ORDERED: Magnesium 1GM/D5W 100ML PREMIX 100 ML IV SCH (21:00)
[2023-02-16] MEDS: INSULIN GLARGINE, 100 UNIT/ML CARTRIDGE SQ SCH (21:16)
[2023-02-17] VITALS: BP 131/88; TEMP 97.5; O2SAT 100
[2023-02-17] MEDS: JEVITY 1.5 CAL LIQUID 1,000 ML BOTTLE GT SCH ×6 (00:39→21:00)
[2023-02-17 04:00] VITALS: BP 133/93; TEMP 97; O2SAT 100
[2023-02-17] MEDS: BLOOD SUGAR DIAGNOSTIC 1 EACH STRIP IN SCH ×4 (05:05→23:48)
[2023-02-17] MEDS: ZOSYN IVPB 3.375 G in IV D5W 50ml IV SCH (05:05)
[2023-02-17] MEDS: INSULIN REGULAR, HUMAN 100 UNIT/ML 3 ML VIAL SQ PRN ×4 (05:15→23:40)
[2023-02-17 07:44] LABS: CALCIUM, SERUM 7.7 mg/dL (8.5-10.1); CREATININE 0.5 mg/dL (0.6-1.3); PHOSPHORUS 2.6 mg/dL (2.5-4.9); POTASSIUM 3.7 mmol/L (3.5-5.1)
[2023-02-17 08:00] VITALS: BP 120/82; TEMP 97.5; O2SAT 100
[2023-02-17] MEDS ORDERED: TPN BAG #5 IV SCH ×3 (08:00)
[2023-02-17] MEDS: LEVOTHYROXINE INJ 100 MCG VIAL IV SCH (08:23)
[2023-02-17] MEDS: METOPROLOL TARTRATE 25 MG TABLET GT SCH ×2 (09:00→21:00)
[2023-02-17] MEDS: Z GUARD REMEDY 4 OZ OINT TP SCH (09:10)
[2023-02-17] MEDS: CLOTRIMAZOLE 1% 15 GM TUBE TP SCH ×2 (09:10→17:34)
[2023-02-17] MEDS: DESMOPRESSIN 4 MCG/ML AMPUL IV SCH ×2 (09:10→21:40)
[2023-02-17] MEDS: HYDROCORTISONE SOD SUCCINATE 100 MG/2 ML VIAL IV SCH (09:16)
[2023-02-17] MEDS: CHLORHEXIDINE GLUCONATE 15 ML UDC MM SCH ×2 (09:16→17:59)
[2023-02-17] MEDS: LEVETIRACETAM (500MG) 1,000 MG in IV NS 0.9% 90 ML IV SCH ×2 (11:26→23:20)
[2023-02-17 12:00] VITALS: BP 121/85; TEMP 97.6; O2SAT 100
[2023-02-17] MEDS ORDERED: POTASSIUM PHOSPHATE MM 7.5 MMOL in IV NS 0.9% 100 ML IV SCH (15:00)
[2023-02-17 16:00] VITALS: BP 129/84; TEMP 97.3; O2SAT 99
[2023-02-17 20:00] VITALS: BP 129/83; TEMP 97.3; O2SAT 100
[2023-02-17] MEDS: INSULIN GLARGINE, 100 UNIT/ML CARTRIDGE SQ SCH (23:48)
[2023-02-18] MEDS ORDERED: TPN BAG #6 IV SCH
[2023-02-18 00:52] VITALS: BP 126/88; TEMP 97.5; O2SAT 100
[2023-02-18] MEDS: JEVITY 1.5 CAL LIQUID 1,000 ML BOTTLE GT SCH ×6 (01:00→21:00)
[2023-02-18 04:10] VITALS: BP 130/91; TEMP 97.8; O2SAT 100
[2023-02-18] MEDS: BLOOD SUGAR DIAGNOSTIC 1 EACH STRIP IN SCH ×4 (06:22→23:41)
[2023-02-18] MEDS: INSULIN REGULAR, HUMAN 100 UNIT/ML 3 ML VIAL SQ PRN ×3 (06:23→23:43)
[2023-02-18 06:49] LABS: BASOPHILS % (AUTO) 0.1 % (0.0-2.0); EOSINOPHILS # (AUTO) 0.2 K/uL (0.0-0.7); HEMATOCRIT 29 % (33-45); HEMOGLOBIN 8.9 g/dL (11.5-14.8); LYMPHOCYTES # (AUTO) 2.4 K/uL (0.8-4.8); LYMPHOCYTES % (AUTO) 27.2 % (20.0-44.0); MEAN CORPUSCULAR HEMOGLOBIN 26 PG (26.0-33.0); MEAN CORPUSCULAR HGB CONC 31 g/dl (31.0-36.0); MEAN CORPUSCULAR VOLUME 82 fL (82-100); MONOCYTES # (AUTO) 0.4 K/uL (0.1-1.30); MONOCYTES % (AUTO) 4.8 % (2.0-12.0); NEUTROPHILS # (AUTO) 5.7 K/uL (1.8-8.9); NEUTROPHILS % (AUTO) 65.9 % (43.0-81.0); PLATELET COUNT (AUTO) 338 K/uL (150-450); RED BLOOD CELL COUNT(AUTO) 3.51 MIL/uL (4.0-5.2); RED CELL DISTRIBUTION WIDTH 22.1 % (11.5-15.0); WHITE BLOOD COUNT (AUTO) 8.7 K/uL (4.3-11.0)
[2023-02-18 07:37] LABS: CALCIUM, SERUM 8.1 mg/dL (8.5-10.1); CREATININE 0.6 mg/dL (0.6-1.3); MAGNESIUM 1.6 mg/dL (1.8-2.4); PHOSPHORUS 2.8 mg/dL (2.5-4.9)
[2023-02-18 08:00] VITALS: BP 122/66; TEMP 98.1; O2SAT 100
[2023-02-18] MEDS: HYDROCORTISONE SOD SUCCINATE 100 MG/2 ML VIAL IV SCH (08:33)
[2023-02-18] MEDS: METOPROLOL TARTRATE 25 MG TABLET GT SCH ×2 (08:34→20:15)
[2023-02-18] MEDS: DESMOPRESSIN 4 MCG/ML AMPUL IV SCH ×2 (08:34→22:11)
[2023-02-18] MEDS: CHLORHEXIDINE GLUCONATE 15 ML UDC MM SCH ×2 (08:34→16:39)
[2023-02-18] MEDS: LEVOTHYROXINE INJ 100 MCG VIAL IV SCH (08:35)
[2023-02-18 08:43] LABS: POTASSIUM 2.6 mmol/L (3.5-5.1)
[2023-02-18] MEDS: CLOTRIMAZOLE 1% 15 GM TUBE TP SCH ×2 (08:57→16:40)
[2023-02-18] MEDS: Z GUARD REMEDY 4 OZ OINT TP SCH (08:58)
[2023-02-18] MEDS ORDERED: POTASSIUM CHLORIDE 10 MEQ/50 ML PREMIXED IVPB FOR PERIPHERAL LINE IV ONE (10:00)
[2023-02-18] MEDS: LEVETIRACETAM (500MG) 1,000 MG in IV NS 0.9% 90 ML IV SCH ×2 (10:04→21:25)
[2023-02-18] MEDS: Magnesium 1GM/D5W 100ML PREMIX 100 ML IV SCH ×2 (10:22→11:38)
[2023-02-18] MEDS: POTASSIUM CL. PREMIX PERIPHER. 50 ML IV SCH ×6 (11:06→18:03)
[2023-02-18 12:00] VITALS: BP 129/83; TEMP 98.1; O2SAT 100
[2023-02-18] MEDS: GLUCERNA 1.2 1,000 ML BOTTLE NG PRN ×2 (12:36→23:55)
[2023-02-18 14:39] LABS: CALCIUM, SERUM 8.2 mg/dL (8.5-10.1); CREATININE 0.6 mg/dL (0.6-1.3); POTASSIUM 3.6 mmol/L (3.5-5.1)
[2023-02-18 16:00] VITALS: BP 123/75; TEMP 98.6; O2SAT 100
[2023-02-18] MEDS: FAT EMULSION 20% 500 ML in PREMIX 1 EA IV SCH (16:05)
[2023-02-18] MEDS ORDERED: TPN BAG #7 IV SCH ×3 (16:40)
[2023-02-18] MEDS: ALBUTEROL FS 2.5 MG/3 ML VIAL.NEB NEB PRN (16:41)
[2023-02-18 20:06] VITALS: BP 130/73; TEMP 97.5; O2SAT 100
[2023-02-18] MEDS: INSULIN GLARGINE, 100 UNIT/ML CARTRIDGE SQ SCH (22:00)
[2023-02-18] MEDS ORDERED: INSULIN GLARGINE, 100 UNIT/ML CARTRIDGE SQ ONE (23:59)
[2023-02-19 00:24] VITALS: BP 123/81; TEMP 97.9; O2SAT 100
[2023-02-19] MEDS: JEVITY 1.5 CAL LIQUID 1,000 ML BOTTLE GT SCH ×6 (01:00→21:00)
[2023-02-19 04:00] VITALS: BP 126/76; TEMP 97.9; O2SAT 100
[2023-02-19 05:52] LABS: BASOPHILS % (AUTO) 0.6 % (0.0-2.0); EOSINOPHILS # (AUTO) 0.2 K/uL (0.0-0.7); EOSINOPHILS % (AUTO) 2.7 % (0.0-6.0); HEMATOCRIT 31 % (33-45); HEMOGLOBIN 9.8 g/dL (11.5-14.8); LYMPHOCYTES # (AUTO) 1.9 K/uL (0.8-4.8); LYMPHOCYTES % (AUTO) 26.5 % (20.0-44.0); MEAN CORPUSCULAR HEMOGLOBIN 26 PG (26.0-33.0); MEAN CORPUSCULAR HGB CONC 32 g/dl (31.0-36.0); MEAN CORPUSCULAR VOLUME 82 fL (82-100); MONOCYTES # (AUTO) 0.3 K/uL (0.1-1.30); MONOCYTES % (AUTO) 4.1 % (2.0-12.0); NEUTROPHILS # (AUTO) 4.7 K/uL (1.8-8.9); NEUTROPHILS % (AUTO) 66.1 % (43.0-81.0); PLATELET COUNT (AUTO) 401 K/uL (150-450); RED BLOOD CELL COUNT(AUTO) 3.81 MIL/uL (4.0-5.2); RED CELL DISTRIBUTION WIDTH 21.9 % (11.5-15.0); WHITE BLOOD COUNT (AUTO) 7.1 K/uL (4.3-11.0)
[2023-02-19 06:06] LABS: CALCIUM, SERUM 8.9 mg/dL (8.5-10.1); CREATININE 0.7 mg/dL (0.6-1.3); MAGNESIUM 2.3 mg/dL (1.8-2.4); PHOSPHORUS 3.3 mg/dL (2.5-4.9)
[2023-02-19] MEDS: BLOOD SUGAR DIAGNOSTIC 1 EACH STRIP IN SCH ×3 (06:07→18:09)
[2023-02-19] MEDS: INSULIN REGULAR, HUMAN 100 UNIT/ML 3 ML VIAL SQ PRN ×3 (06:08→18:11)
[2023-02-19 06:52] LABS: POTASSIUM 2.6 mmol/L (3.5-5.1)
[2023-02-19 08:00] VITALS: BP 123/72; TEMP 97.5; O2SAT 95
[2023-02-19] MEDS: DESMOPRESSIN 4 MCG/ML AMPUL IV SCH ×2 (08:27→21:26)
[2023-02-19] MEDS: HYDROCORTISONE SOD SUCCINATE 100 MG/2 ML VIAL IV SCH (08:27)
[2023-02-19] MEDS: LEVOTHYROXINE INJ 100 MCG VIAL IV SCH (08:27)
[2023-02-19] MEDS: LEVETIRACETAM SOL (5 ML) 100 MG/ML UDC GT SCH ×2 (08:27→21:22)
[2023-02-19] MEDS: CHLORHEXIDINE GLUCONATE 15 ML UDC MM SCH ×2 (08:28→17:14)
[2023-02-19] MEDS: CLOTRIMAZOLE 1% 15 GM TUBE TP SCH ×2 (08:29→17:12)
[2023-02-19] MEDS: METOPROLOL TARTRATE 25 MG TABLET GT SCH ×2 (08:29→21:22)
[2023-02-19] MEDS: Z GUARD REMEDY 4 OZ OINT TP SCH (08:29)
[2023-02-19] MEDS ORDERED: POTASSIUM CHLORIDE 20 MEQ POWDER PACKET NG ONE (08:30)
[2023-02-19] MEDS ORDERED: TPN BAG #8 IV SCH ×3 (09:20)
[2023-02-19] MEDS: IV D5W 1,000 ML IV PRN ×2 (09:27→19:59)
[2023-02-19 12:00] VITALS: BP 113/71; TEMP 97.6; O2SAT 99
[2023-02-19] MEDS: ALBUTEROL FS 2.5 MG/3 ML VIAL.NEB NEB PRN ×2 (13:49→19:59)
[2023-02-19 16:00] VITALS: BP 117/81; TEMP 97.9; O2SAT 100
[2023-02-19 16:13] LABS: CALCIUM, SERUM 8.6 mg/dL (8.5-10.1); CREATININE 0.7 mg/dL (0.6-1.3); POTASSIUM 3.9 mmol/L (3.5-5.1)
[2023-02-19 20:00] VITALS: BP 118/71; TEMP 97.4; O2SAT 100
[2023-02-19] MEDS: INSULIN GLARGINE, 100 UNIT/ML CARTRIDGE SQ SCH (22:00)
[2023-02-20] VITALS (7 sets, daily range): BP systolic 105–130; BP diastolic 65–95; TEMP 97.2–98.7; O2SAT 100
[2023-02-20] MEDS: BLOOD SUGAR DIAGNOSTIC 1 EACH STRIP IN SCH ×4 (00:28→18:16)
[2023-02-20] MEDS: INSULIN REGULAR, HUMAN 100 UNIT/ML 3 ML VIAL SQ PRN (00:29)
[2023-02-20] MEDS: JEVITY 1.5 CAL LIQUID 1,000 ML BOTTLE GT SCH ×6 (01:00→21:00)
[2023-02-20 05:49] LABS: BASOPHILS % (AUTO) 0.4 % (0.0-2.0); EOSINOPHILS # (AUTO) 0.2 K/uL (0.0-0.7); EOSINOPHILS % (AUTO) 2.2 % (0.0-6.0); HEMATOCRIT 28 % (33-45); HEMOGLOBIN 8.7 g/dL (11.5-14.8); LYMPHOCYTES # (AUTO) 1.9 K/uL (0.8-4.8); LYMPHOCYTES % (AUTO) 25.2 % (20.0-44.0); MEAN CORPUSCULAR HEMOGLOBIN 26 PG (26.0-33.0); MEAN CORPUSCULAR HGB CONC 31 g/dl (31.0-36.0); MEAN CORPUSCULAR VOLUME 82 fL (82-100); MONOCYTES # (AUTO) 0.3 K/uL (0.1-1.30); MONOCYTES % (AUTO) 4.3 % (2.0-12.0); NEUTROPHILS % (AUTO) 67.9 % (43.0-81.0); PLATELET COUNT (AUTO) 306 K/uL (150-450); RED BLOOD CELL COUNT(AUTO) 3.39 MIL/uL (4.0-5.2); RED CELL DISTRIBUTION WIDTH 22.1 % (11.5-15.0); WHITE BLOOD COUNT (AUTO) 7.4 K/uL (4.3-11.0)
[2023-02-20 06:08] LABS: CALCIUM, SERUM 8.7 mg/dL (8.5-10.1); CREATININE 0.6 mg/dL (0.6-1.3); MAGNESIUM 1.9 mg/dL (1.8-2.4); PHOSPHORUS 3.8 mg/dL (2.5-4.9); POTASSIUM 3.1 mmol/L (3.5-5.1)
[2023-02-20] MEDS: IV D5W 1,000 ML IV PRN ×2 (06:09→18:00)
[2023-02-20] MEDS: CHLORHEXIDINE GLUCONATE 15 ML UDC MM SCH ×2 (08:53→18:15)
[2023-02-20] MEDS: LEVETIRACETAM SOL (5 ML) 100 MG/ML UDC GT SCH ×2 (08:53→22:07)
[2023-02-20] MEDS: METOPROLOL TARTRATE 25 MG TABLET GT SCH ×2 (08:54→21:00)
[2023-02-20] MEDS: LEVOTHYROXINE INJ 100 MCG VIAL IV SCH (09:18)
[2023-02-20] MEDS: CLOTRIMAZOLE 1% 15 GM TUBE TP SCH ×2 (09:19→18:15)
[2023-02-20] MEDS: Z GUARD REMEDY 4 OZ OINT TP SCH (09:19)
[2023-02-20] MEDS: HYDROCORTISONE SOD SUCCINATE 100 MG/2 ML VIAL IV SCH (09:19)
[2023-02-20] MEDS: DESMOPRESSIN 4 MCG/ML AMPUL IV SCH ×2 (09:34→22:15)
[2023-02-20] MEDS ORDERED: POTASSIUM CHLORIDE 20 MEQ POWDER PACKET PO ONE (10:00)
[2023-02-20] MEDS: GLUCERNA 1.2 1,000 ML BOTTLE NG PRN (13:51)
[2023-02-20 15:01] LABS: CALCIUM, SERUM 8.4 mg/dL (8.5-10.1); CREATININE 0.8 mg/dL (0.6-1.3); POTASSIUM 3.6 mmol/L (3.5-5.1)
[2023-02-20] MEDS: LORAZEPAM INJ 2 MG/ML VIAL IV PRN (16:16)
[2023-02-20] MEDS: MORPHINE SULFATE INJ 2 MG/ML DISP.SYRIN IV PRN (19:41)
[2023-02-20] MEDS: INSULIN GLARGINE, 100 UNIT/ML CARTRIDGE SQ SCH (22:24)
[2023-02-21] VITALS (74 sets, daily range): BP systolic 81–147; BP diastolic 44–100; TEMP 97–98; O2SAT 92–100
[2023-02-21] MEDS: BLOOD SUGAR DIAGNOSTIC 1 EACH STRIP IN SCH ×4 (01:00→17:23)
[2023-02-21] MEDS: LORAZEPAM INJ 2 MG/ML VIAL IV PRN ×2 (02:48→20:49)
[2023-02-21] MEDS ORDERED: LORAZEPAM INJ 2 MG/ML VIAL IV ONE (04:00)
[2023-02-21] MEDS: IV D5W 1,000 ML IV PRN ×2 (04:18→13:54)
[2023-02-21 04:27] LABS: ABG BASE EXCESS 5.7 mmol/L; ABG OXYGEN SATURATION 97.3 % (92.0-98.5); ABG PH 7.184 (7.350-7.450); ABG TOTAL HEMOGLOBIN 11.6 G/dL (12.0-16.0); AaDO2 43.2 mmHg; COHb 0.3 % (0.5-1.5); MetHb 0.2 % (0.0-1.5); O2Hb 96.8 % (94.0-97.0); SITE, ABG Left Radial
[2023-02-21] MEDS: GLUCERNA 1.2 1,000 ML BOTTLE NG PRN (05:24)
[2023-02-21] MEDS: PROPOFOL 100 ML IV PRN (05:28)
[2023-02-21 05:47] LABS: ABG BASE EXCESS 8.3 mmol/L; ABG OXYGEN SATURATION 97.2 % (92.0-98.5); ABG PH 7.372 (7.350-7.450); ABG PO2 103.4 mmHg (75.0-100.0); ABG TOTAL HEMOGLOBIN 10.7 G/dL (12.0-16.0); AaDO2 110.5 mmHg; COHb 0.3 % (0.5-1.5); MetHb 0.2 % (0.0-1.5); O2Hb 96.7 % (94.0-97.0); SITE, ABG Left Radial
[2023-02-21] MEDS ORDERED: NOREPINEPHRINE 4 MG/4 ML AMPUL IV ONE (06:27)
[2023-02-21] MEDS ORDERED: NOREPINEPHRINE 8 MG in IV NS 0.9% 242 ML IV PRN (06:30)
[2023-02-21] MEDS: LEVETIRACETAM SOL (5 ML) 100 MG/ML UDC GT SCH ×2 (08:00→21:56)
[2023-02-21] MEDS: LEVOTHYROXINE INJ 100 MCG VIAL IV SCH (08:00)
[2023-02-21] MEDS: CHLORHEXIDINE GLUCONATE 15 ML UDC MM SCH ×2 (08:01→16:02)
[2023-02-21] MEDS: HYDROCORTISONE SOD SUCCINATE 100 MG/2 ML VIAL IV SCH (08:01)
[2023-02-21] MEDS: CLOTRIMAZOLE 1% 15 GM TUBE TP SCH ×2 (08:02→16:03)
[2023-02-21] MEDS: Z GUARD REMEDY 4 OZ OINT TP SCH (08:03)
[2023-02-21 08:48] LABS: BASOPHILS % (AUTO) 0.1 % (0.0-2.0); EOSINOPHILS # (AUTO) 0.2 K/uL (0.0-0.7); EOSINOPHILS % (AUTO) 1.8 % (0.0-6.0); HEMATOCRIT 29 % (33-45); LYMPHOCYTES # (AUTO) 1.9 K/uL (0.8-4.8); LYMPHOCYTES % (AUTO) 14.3 % (20.0-44.0); MEAN CORPUSCULAR HEMOGLOBIN 26 PG (26.0-33.0); MEAN CORPUSCULAR HGB CONC 31 g/dl (31.0-36.0); MEAN CORPUSCULAR VOLUME 81 fL (82-100); MONOCYTES # (AUTO) 0.4 K/uL (0.1-1.30); MONOCYTES % (AUTO) 3.4 % (2.0-12.0); NEUTROPHILS # (AUTO) 10.4 K/uL (1.8-8.9); NEUTROPHILS % (AUTO) 80.4 % (43.0-81.0); PLATELET COUNT (AUTO) 327 K/uL (150-450); RED BLOOD CELL COUNT(AUTO) 3.54 MIL/uL (4.0-5.2); RED CELL DISTRIBUTION WIDTH 21.7 % (11.5-15.0)
[2023-02-21] MEDS: METOPROLOL TARTRATE 25 MG TABLET GT SCH ×2 (08:48→21:57)
[2023-02-21 09:02] LABS: CALCIUM, SERUM 8.2 mg/dL (8.5-10.1); CREATININE 0.7 mg/dL (0.6-1.3)
[2023-02-21 09:05] LABS: MAGNESIUM 1.4 mg/dL (1.8-2.4); PHOSPHORUS 3.8 mg/dL (2.5-4.9)
[2023-02-21 09:11] LABS: POTASSIUM 2.8 mmol/L (3.5-5.1)
[2023-02-21] MEDS: DESMOPRESSIN 4 MCG/ML AMPUL IV SCH ×2 (09:54→21:55)
[2023-02-21] MEDS: Magnesium 1GM/D5W 100ML PREMIX 100 ML IV SCH ×3 (10:14→12:20)
[2023-02-21] MEDS ORDERED: POTASSIUM CHLORIDE 20 MEQ POWDER PACKET GT ONE ×2 (11:00→15:00)
[2023-02-21] MEDS ORDERED: POTASSIUM CHLORIDE 10 MEQ TABLET.SA GT ONE ×2 (11:00→15:00)
[2023-02-21] MEDS: INSULIN REGULAR, HUMAN 100 UNIT/ML 3 ML VIAL SQ PRN ×2 (11:55→17:26)
[2023-02-21] MEDS: PIPERACILLIN /TAZOBACTAM 3.375 G in IV D5W 50 ML IV SCH ×2 (17:24→23:58)
[2023-02-21 17:57] LABS: ABG BASE EXCESS 8.3 mmol/L; ABG OXYGEN SATURATION 98.2 % (92.0-98.5); ABG PCO2 38.7 mmHg (35.0-45.0); ABG PO2 112.5 mmHg (75.0-100.0); ABG TOTAL HEMOGLOBIN 10.1 G/dL (12.0-16.0); AaDO2 128.2 mmHg; COHb 0.2 % (0.5-1.5); SITE, ABG Right Radial; VENT MODE, BG AC 14 350 40% +5
[2023-02-21] MEDS: INSULIN GLARGINE, 100 UNIT/ML CARTRIDGE SQ SCH (22:00)
[2023-02-22] VITALS (23 sets, daily range): BP systolic 92–121; BP diastolic 52–87; TEMP 97.6–98; O2SAT 98–100
[2023-02-22] MEDS: BLOOD SUGAR DIAGNOSTIC 1 EACH STRIP IN SCH ×3 (00:06→11:14)
[2023-02-22] MEDS: IV D5W 1,000 ML IV PRN (00:07)
[2023-02-22] MEDS: LORAZEPAM INJ 2 MG/ML VIAL IV PRN (04:18)
[2023-02-22 04:37] LABS: BASOPHILS # (AUTO) 0.1 K/uL (0.0-0.2); BASOPHILS % (AUTO) 1.6 % (0.0-2.0); EOSINOPHILS # (AUTO) 0.2 K/uL (0.0-0.7); EOSINOPHILS % (AUTO) 3.1 % (0.0-6.0); HEMATOCRIT 26 % (33-45); HEMOGLOBIN 8.2 g/dL (11.5-14.8); LYMPHOCYTES # (AUTO) 1.7 K/uL (0.8-4.8); LYMPHOCYTES % (AUTO) 22.2 % (20.0-44.0); MEAN CORPUSCULAR HEMOGLOBIN 26 PG (26.0-33.0); MEAN CORPUSCULAR HGB CONC 32 g/dl (31.0-36.0); MEAN CORPUSCULAR VOLUME 80 fL (82-100); MONOCYTES # (AUTO) 0.3 K/uL (0.1-1.30); MONOCYTES % (AUTO) 3.4 % (2.0-12.0); NEUTROPHILS # (AUTO) 5.3 K/uL (1.8-8.9); NEUTROPHILS % (AUTO) 69.7 % (43.0-81.0); PLATELET COUNT (AUTO) 253 K/uL (150-450); RED CELL DISTRIBUTION WIDTH 21.3 % (11.5-15.0); WHITE BLOOD COUNT (AUTO) 7.7 K/uL (4.3-11.0)
[2023-02-22 04:49] LABS: CALCIUM, SERUM 8.5 mg/dL (8.5-10.1); CREATININE 0.6 mg/dL (0.6-1.3)
[2023-02-22 04:54] LABS: LACTIC ACID 0.6 mmol/L (0.4-2.0)
[2023-02-22] MEDS: PIPERACILLIN /TAZOBACTAM 3.375 G in IV D5W 50 ML IV SCH (06:11)
[2023-02-22] MEDS: IV NS 0.9% 250 ML IV PRN (06:11)
[2023-02-22] MEDS: METOPROLOL TARTRATE 25 MG TABLET GT SCH (08:42)
[2023-02-22] MEDS: LEVOTHYROXINE INJ 100 MCG VIAL IV SCH (08:43)
[2023-02-22] MEDS: CHLORHEXIDINE GLUCONATE 15 ML UDC MM SCH ×2 (08:43→16:00)
[2023-02-22] MEDS: HYDROCORTISONE SOD SUCCINATE 100 MG/2 ML VIAL IV SCH (08:43)
[2023-02-22] MEDS: LEVETIRACETAM SOL (5 ML) 100 MG/ML UDC GT SCH (08:43)
[2023-02-22] MEDS: CLOTRIMAZOLE 1% 15 GM TUBE TP SCH ×2 (08:52→16:00)
[2023-02-22] MEDS: Z GUARD REMEDY 4 OZ OINT TP SCH (08:52)
[2023-02-22] MEDS ORDERED: DESMOPRESSIN 4 MCG/ML AMPUL IV SCH (09:00)
[2023-02-22] MEDS: METOCLOPRAMIDE HCL 10 MG/2 ML VIAL IV SCH ×2 (10:03→15:13)
[2023-02-22] MEDS: PROPOFOL 100 ML IV PRN ×2 (10:32→14:18)
[2023-02-22] MEDS: INSULIN REGULAR, HUMAN 100 UNIT/ML 3 ML VIAL SQ PRN (11:15)
[2023-02-22] MEDS ORDERED: PIPERACILLIN /TAZOBACTAM 3.375 G in IV D5W 100 ML IV SCH (13:00)
== END 2023-02-22 16:34 | disposition short-term general hospital (02) | DRG 130 ==
LOC: ER 03:37 → TELE-TD 06:54 → ICU 02-10 22:02 → TELE-TD 02-13 17:25 → TELE1 02-14 09:56 → ICU 02-21 04:44
PROVIDERS: ADMIT Internal Medicine; ATTEND Nurse Practitioner Acute Care
PROC: 5A1955Z Respiratory Ventilation, Greater than 96 Consecutive Hours (ICD-10-PCS; principal; 2023-02-09)
PROC: 05HB33Z Insertion of Infusion Device into Right Basilic Vein, Percutaneous Approach (ICD-10-PCS; 2023-02-09)
PROC: 02HV33Z Insertion of Infusion Device into Superior Vena Cava, Percutaneous Approach (ICD-10-PCS; 2023-02-11)
PROC: B548ZZA Ultrasonography of Superior Vena Cava, Guidance (ICD-10-PCS; 2023-02-11)
PROC: 0DH63UZ Insertion of Feeding Device into Stomach, Percutaneous Approach (ICD-10-PCS; 2023-02-17)
PROC: 05HC33Z Insertion of Infusion Device into Left Basilic Vein, Percutaneous Approach (ICD-10-PCS; 2023-02-18)
PROC: 05HF33Z Insertion of Infusion Device into Left Cephalic Vein, Percutaneous Approach (ICD-10-PCS; 2023-02-18)
PROC: 0BDM8ZX Extraction of Bilateral Lungs, Via Natural or Artificial Opening Endoscopic, Diagnostic (ICD-10-PCS; 2023-02-18)
DX: J95.03 Malfunction of tracheostomy stoma (principal); R57.1 Hypovolemic shock; N17.0 Acute kidney failure with tubular necrosis; E23.2 Diabetes insipidus; J96.21 Acute and chronic respiratory failure with hypoxia; G93.41 Metabolic encephalopathy; E22.2 Syndrome of inappropriate secretion of antidiuretic hormone; T17.990A Other foreign object in respiratory tract, part unspecified in causing asphyxiation, initial encounter; E86.1 Hypovolemia; J90 Pleural effusion, not elsewhere classified; G93.1 Anoxic brain damage, not elsewhere classified; K94.23 Gastrostomy malfunction; E23.0 Hypopituitarism; E27.40 Unspecified adrenocortical insufficiency; E11.22 Type 2 diabetes mellitus with diabetic chronic kidney disease; Z99.11 Dependence on respirator [ventilator] status; J98.11 Atelectasis; Y83.3 Surgical operation with formation of external stoma as the cause of abnormal reaction of the patient, or of later complication, without mention of misadventure at the time of the procedure; Y82.8 Other medical devices associated with adverse incidents; Y92.9 Unspecified place or not applicable; K29.70 Gastritis, unspecified, without bleeding; Z20.822 Contact with and (suspected) exposure to COVID-19; R13.10 Dysphagia, unspecified; G40.909 Epilepsy, unspecified, not intractable, without status epilepticus; E66.01 Morbid (severe) obesity due to excess calories; Z68.35 Body mass index [BMI] 35.0-35.9, adult; Z86.718 Personal history of other venous thrombosis and embolism; Z79.84 Long term (current) use of oral hypoglycemic drugs; Z79.899 Other long term (current) drug therapy; Z79.4 Long term (current) use of insulin; Z79.51 Long term (current) use of inhaled steroids; J39.8 Other specified diseases of upper respiratory tract; E83.42 Hypomagnesemia; E03.9 Hypothyroidism, unspecified; D64.9 Anemia, unspecified; K80.20 Calculus of gallbladder without cholecystitis without obstruction; M89.8X9 Other specified disorders of bone, unspecified site; N18.9 Chronic kidney disease, unspecified; Z98.2 Presence of cerebrospinal fluid drainage device; Z86.018 Personal history of other benign neoplasm; Z79.890 Hormone replacement therapy; L98.9 Disorder of the skin and subcutaneous tissue, unspecified; Y84.8 Other medical procedures as the cause of abnormal reaction of the patient, or of later complication, without mention of misadventure at the time of the procedure; Y92.129 Unspecified place in nursing home as the place of occurrence of the external cause
CPT/HCPCS: 31720; 36410; 36415; 36569; 36600; 43246; 71045-TC; 71250-TC; 76770-TC; 80048-TC; 80053-TC; 80076-TC; 80202-TC; 81001; 82533; 82570-TC; 82803-TC; 82962-TC; 83605-TC; 83735-TC; 83880; 84100-TC; 84132-TC; 84300-TC; 84439-TC; 84443-TC; 84478-TC; 84484-TC; 84703-TC; 85025-TC; 85730-TC; 86803; 87040-TC; 87081-TC; 87086-TC; 87806; 93307-TC; 93970-TC; 94003-TC; 94760-TC; 94762-TC; 94799-TC; A4216; A4223; A4623; A7526; A9563; C9803; G0378; J0692; J1644; J1720; J1815; J1940; J1953; J2060; J2248; J2270; J2370; J2543; J2597; J2704; J2765; J3370; J3475; J3480; J3490; J7030; J7040; J7042; J7050; J7060; J7070